=== PATIENT | male | born 1950 | race Caucasian/White ===

== ENCOUNTER → 2018-10-25 | Day surgery (SDC) | payer OTHER ==
[2018-10-24 12:00] VITALS: BP 134/66
[2018-10-24 13:29] LABS: BASO # 0.1 10*3/uL (0.0-0.1); BASO % 1.1 % (0.0-1.0); EOS # 0.4 10*3/uL (0.0-0.4); EOS % 4.8 % (1.0-4.0); HEMOGLOBIN 14.7 g/dl (14.0-18.0); LYMPH # 2.9 10*3/uL (1.3-4.4); LYMPH % 36.6 % (27.0-41.0); MEAN CELL VOLUME 95.2 fl (80.0-94.0); MEAN CORPUSCULAR HGB 31.8 pg (27.0-31.0); MEAN CORPUSCULAR HGB CONC 33.4 g/dl (33.0-37.0); MEAN PLATELET VOLUME 9.9 fl (9.6-12.3); MONO # 0.6 10*3/uL (0.1-1.0); MONO % 7.2 % (3.0-9.0); NEUT # 3.9 10*3/uL (2.3-7.9); NEUT % 49.9 % (47.0-73.0); PLATELET COUNT AUTOMATED 307 10*3/uL (130-400); RED BLOOD COUNT 4.62 10*6/uL (4.50-5.90); RED CELL DISTRI WIDTH 13.1 % (0-14.5); WHITE BLOOD COUNT 7.9 10*3/uL (4.8-10.8)
[2018-10-24 13:51] LABS: BUN 24 mg/dl (7-24); CHLORIDE 108 mmol/L (98-107); CREATININE 0.94 mg/dL (0.70-1.30); POTASSIUM 4.6 mmol/L (3.5-5.1); SODIUM 141 mmol/L (136-145)
[~2018-10-25] VITALS: Ht 170.1 cm; Wt 81.6 kg
[2018-10-25] VITALS (7 sets, daily range): BP systolic 137–158; BP diastolic 68–83
[~2018-10-25] MED LIST: DOXYCYCLINE100 M3 PO; NORCO 5-325 TA1 EACH PO; TRAMADOL HCL50 MG PO; XARELTO10 MG PO
--- NOTE | ~2018-10-25 | WRIGHTHP ---
[place], [place] PATIENT HISTORY AND PHYSICAL EXAM [facility]: [id number] UNIT #: [id number] ROOM: DOCTOR: SIGIFREDO TY DPM BIRTHDATE: [birth year] DOS: 10/25/2018 INDICATION NOTE: The patient is seen for a distal fibular fracture of right. On stress view, he is noted to have a significant gapping of the medial deltoid and the medial clear space demonstrated it is equivalent to bimalleolar fracture. At this time, he has been set for surgery for open reduction and internal fixation of right ankle. With this in mind, he is aware of pros and cons; risks and benefits; overcorrection; undercorrection; recurrence of stump infection; worsening of bone; breaking of the bone; nonhealing of the bone; arterial, vein, nerve, muscle, or tendon damage. With this in mind, he signed the consent, understands and he agreed to site marking, agreed to preoperative management, agreed to the surgical route forward. With this in mind, he is agreeable to perform surgery today on 10/25/2018 at [facility]. SIGIFREDO TY DPM CM:HISPHYS:PATIENT HISTORY AND PHYSICAL EXAMINATION 1339 1548 SIGIFREDO TY DPM 10/25/18 2312 interface
--- NOTE | ~2018-10-25 | EKG ---
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
--- NOTE | ~2018-10-25 | O ---
[place], [place] OPERATIVE NOTE NAME: [id number] UNIT #: [id number] ROOM: DOCTOR: KARSON DURANSIGIFREDO BIRTHDATE: [birth year] DOS: 10/25/2018 SURGEON: Sigifredo Ty DPM PROCESS ENG: Lauri Patterson, PGY1. PREOPERATIVE DIAGNOSES: Distal fibula fracture, rupture of medial deltoid ligament on the right. POSTOPERATIVE DIAGNOSES: Distal fibula fracture, rupture of medial deltoid ligament on the right, with addition of syndesmotic disruption of the right with a disruption of tib-fib syndesmosis of the right side. PROCEDURES: 1. Open reduction and internal fixation, right distal fibula. 2. Repair of the syndesmosis ligament. 3. Repair of the medial deltoid ligament of the right. DESCRIPTION OF PROCEDURE: The patient was seen in the preoperative holding area, appropriate site marking was performed. The patient agreed with the consent, agreed with preoperative management as well as site marking. He was brought in the OR and placed well-padded on OR table and prior to this, he had a popliteal block. He was brought in the OR and placed on the OR table. At this time, the right foot was prepped and draped in a sterile fashion. Hemostasis was accomplished via mid-thigh tourniquet following anesthesia induction. At this time, appropriate timeout in the room was performed and everybody in the room concurred with the appropriate timeout on the right. At this point in time, the right leg was prepped and draped in the usual sterile fashion. Hemostasis was accomplished via mid-thigh tourniquet, which was inflated to 300 mmHg. PROCEDURE #1, Open reduction and internal fixation, right distal fibula: Attention was directed to the right distal fibula. Incision was made over the distal fibula, was deepened in the same plane using sharp and blunt dissection, avoiding neurovascular structures, was carried down to the bone. At this point in time, the tissue retracted anteriorly and posteriorly. At this point in time, the fracture fragment was identified. A curette was used and a rongeur, as well as a [place] elevator to free up the hematoma, which was relatively minimal and appeared to be old in the fibrous tissue, this was resected and removed. Irrigation was performed. At this time, it was manipulated and reduced and a 3.5 interfrag screw was placed from inferior superior to posterior inferiorly. Next, at this time, Bl4Vbher locking plate was inserted and a similar plate was used. At this time, this is fixed with combination of locking and nonlocking screws, locking distally where the fragment was relatively small and somewhat weaker bone relative to the fracture and the cortical bones are more proximal. With this in mind, it was reduced and maintained very nicely. PROCEDURE #2: Repair of syndesmosis injury: At this time, under stress x-ray, a towel clamp was used and distraction on the fibula was placed laterally and there was noted to be bowing of the fibula to the tibia and a syndesmosis gap [place], [place] OPERATIVE NOTE NAME: JOHNMILLICENTKRISTIAN UNIT #: [id number] ROOM: DOCTOR: SIGIFREDO TY DPM BIRTHDATE: [birth year] was noted. External rotation was performed and there was noted to be moderate instability at the distal tib-fib area. At this time, we placed the syndesmotic screws on the distal tibia. With the ankle joint dorsiflexed, a large bone clamp was placed from the medial malleollus to the fibula. This was reduced using two 4.0 syndesmotic screws distally on the fib-tib area. This was checked on fluoroscopy. Once this was inserted, noted to be much more snug and tight and maintained the alignment of the joint much better. PROCEDURE #3, Repair of medial deltoid ligament: At this point in time, stress view was made, there was significant improvement but there was some instability in the medial deltoid ligament. A deep incision was made at the medial deltoid anteriorly. It was deepened in the same plane using sharp and blunt dissection, avoiding neurovascular structures, was carried down to tissues anteriorly and inferiorly, there was noted to be some tear of the deltoid ligament. At this point in time, this was excised in total. Deep tissues were closed with Vicryl and 2-0 nylon was used to close the skin and 0 Vicryl was used to close the deep tissue laterally as well. The surgical wounds were dressed with Betadine-soaked Adaptic, 4 x 4s, Ramses in a sterile compressive fashion. The tourniquet was released and there was noted to be return of good capillary refill time of all digits in the right. He tolerated the procedure and anesthesia well, left the OR with vital signs stable and vascular status intact. Prior to leaving the OR, Univalve BK cast was applied. SIGIFREDO TY DPM CM:OPRECORD:OPERATIVE NOTE 1339 1551 SIGIFREDO TY DPM 11/27/18 1157 interface
--- NOTE | ~2018-10-25 | WRIGHTHP ---
[place], [place] PATIENT HISTORY AND PHYSICAL EXAM [id number] UNIT #: [id number] ROOM: DOCTOR: SIGIFREDO TY DPM BIRTHDATE: [birth year] DOS: 10/25/2018 LOWER EXTREMITY PHYSICAL EXAM: VASCULAR: Palpable pedal pulses 2/4, DP and PT on the right. Good cap refill time. He does have history of smoking. We discussed at length to quit smoking for wound healing. He had noninvasive vascular studies and demonstrated good perfusion. NEUROLOGIC: He has some decreased epicritic sensation on the right lower extremity. DERMATOLOGIC: Intact skin integrity. No purulent drainage, no foul odor, undermining, tunneling on the wounds. MUSCULOSKELETAL: He has a very painful leg equivalent to bimalleolar ankle fracture of right. Upon stress view, external rotation, his mortise opens up, and the toe shifts laterally. Orthopedic exam shows fracture of the distal fibula, possible syndesmosis injury and definitely the collateral ligament consists of bimalleolar ankle fracture on the right. SIGIFREDO TY DPM CM:HISPHYS:PATIENT HISTORY AND PHYSICAL EXAMINATION 1339 1549 SIGIFREDO TY DPM 11/06/18 1354 interface
== END | disposition home or self-care (01) ==
LOC: SDC 10-24 12:30
PROVIDERS: Podiatrist
DX: S82.831A Other fracture of upper and lower end of right fibula, initial encounter for closed fracture (principal); S93.431A Sprain of tibiofibular ligament of right ankle, initial encounter; S93.421A Sprain of deltoid ligament of right ankle, initial encounter; X58.XXXA Exposure to other specified factors, initial encounter; J44.9 Chronic obstructive pulmonary disease, unspecified; Y93.89 Activity, other specified; Y92.89 Other specified places as the place of occurrence of the external cause; Y99.8 Other external cause status; Z91.030 Bee allergy status; Z91.048 Other nonmedicinal substance allergy status; Z72.0 Tobacco use; Z98.890 Other specified postprocedural states; Z82.49 Family history of ischemic heart disease and other diseases of the circulatory system; Z83.3 Family history of diabetes mellitus

== ENCOUNTER 2019-06-27 09:29 | Emergency (ER) | payer MEDICARE ==
[~2019-06-27] VITALS: Ht 172.7 cm; Wt 68.0 kg
== END 2019-06-27 12:55 | disposition expired ==
LOC: ED 09:29
DX: I46.9 Cardiac arrest, cause unspecified (principal)